=== PATIENT | male | born 1960 ===

== ENCOUNTER 2024-12-27 10:46 | Outpatient (REF) | payer MEDICAID, SELFPAY ==
--- OUTSIDE RECORDS SUMMARY | 2024-12-25 18:00 | XMS_ITS | Encounter Summary ---
Author Organization [employer] Address [address] [place] [address] Care Team Providers Care Agricultural Research Director Name Role Phone Unavailable Primary Care Provider Unavailabl e Reason for Referral * Consultation (Routine) - Closed Specialty Diagnoses / Procedures Referred By Contac t Referred To Contact Addiction Medicine Diagnoses Uncomplicated opioid dependence (CMS/HCC) Art Randolph MD [address] [place] [id number] Phone: tel: fax: Referral ID Status Reason Start Date Expiration Date V isits Requested Visits Authorized [id number] Closed Specialty Services Required 12/25/2024 12/25/2025 1 1 Reason for Visit * Reason Comments New patient visit Encounter Details Date Type Department Care Team (Latest Contact Info) Description 12/25/2024 6:00 PM EDT Office Visit [facility] [address] [place] [id number] Art Randolph MD [address] [place] [id number] Type 2 diabetes mellitus with hyperglycemia, with long-term current use of insulin ([facility]) (Primary Dx); CAD in [place] artery; History of [place] (myocardial infarction); History of stroke; PVD (peripheral vascular disease) (CMS/HCC); S/P BKA (below knee amputation) unilateral, right (CMS/HCC); S/P transmetatarsal amputation of foot, left (CMS/HCC); Uncomplicated opioid dependence (CMS/HCC) Social History Tobacco Use Types Packs/Day Years Used Date Smoking Tobacco: Never Assessed Sex and Gender Information Value Date Recorded Sex Assigned at Male 12/25/2024 2:45 PM EDT Legal Sex Male 2:33 PM EDT Gender Identity Male 12/25/2024 2:45 PM EDT Sexual Orientation Straight 12/25/2024 2: 45 PM EDT documented as of this encounter Last Filed Vital Signs Vital Sign Reading Time Taken Comments Blood Pressure 153/65 12/25/2024 5:44 PM EDT Pulse 88 12/25/2024 5:44 PM EDT Temperature 36.7 C (98 F) 12/25/2024 5:44 PM EDT Respiratory Rate 17 12/25/2024 5:44 PM EDT Oxygen Saturation 100% 12/25/2024 5:44 PM EDT Inhaled Oxygen Concentration - - Weight 66 kg (145 lb 9.6 oz) 12/25/2024 5:44 PM EDT Height 167.6 cm (5' 6 ) 12/25/2024 5:44 PM EDT Body Mass Index 23.5 12/25/2024 5:44 PM EDT documented in this encounter Progress Notes * Art Randolph MD - 12/25/2024 6:00 PM EDT Subjective Patient ID: Jim Gutierrez is a 64 y.o. male who presents for New patient visit. Patient comes accompanied by his daughter. The patient recently arrived to [place] from [place] after he was released from [facility]. He has multiple medical problems including longstanding type 2 diabetes with macrovascular complications including CAD, prior history of MIs, prior history of strokes, peripheral vascular disease, status post right BKA, status post transmetatarsal amputation of the left foot. Her daughter brought me a long list of medications he was using in [facility] including Seroquel for anxiety and depression and he was also treated with Suboxone while he was incarcerated.They need refills for all of his medications. They denied he ever had any kidney problems. His blood sugar today is in the 300s and his hemoglobin A1c is below 7. Review of Systems Constitutional: Negative for chills, fatigue and fever. HENT: Negative for sore throat. Respiratory: Negative for cough, chest tightness and shortness of breath. Cardiovascular: Negative for chest pain, palpitations and leg swelling. Gastrointestinal: Negative for abdominal pain and blood in stool. Objective Vitals: 12/25/24 1744 BP: (!) 153/65 BP Location: Left arm Patient Position: Sitting BP Cuff Size: Adult Pulse: 88 Resp: 17 Temp: 98 ??F (36.7 ??C) TempSrc: Oral SpO2: 100% Weight: 145 lb 9.6 oz (66 kg) Height: 5' 6 (1.676 m) Physical Exam Constitutional: Appearance: Normal appearance. Cardiovascular: Rate and Rhythm: Normal rate and regular rhythm. Heart sounds: No murmur heard. Pulmonary: Effort: Pulmonary effort is normal. No respiratory distress. Breath sounds: No wheezing, rhonchi or rales. Abdominal: Palpations: Abdomen is soft. Tenderness: There is no abdominal tenderness. Musculoskeletal: Comments: Status post right BKA. Status post transmetatarsal amputation of the left foot. Neurological: Mental Status: He is alert. Latest Reference Range & Units 12/25/24 18:02 12/25/24 18:03 Glucose Blood, POC 60 - 200 mg/dL 339 ! Hemoglobin A1c 4.0 - 5.7 % 6.4 ! !: Data is abnormal Assessment/Plan Diagnoses and all orders for this visit: Type 2 diabetes mellitus with hyperglycemia, with long-term current use of insulin ([facility]) Comments: I recommended evaluation with fasting blood work listed below. I sent all his medications to [facility]hour [facility] in [place] I will put him on a waiting list for a new PCP Referral to [facility] He was prescribed a new glucose meter for home use. Orders: - POCT Glucose - POCT Hgb A1c - CBC auto differential; Future - Comprehensive Metabolic Panel; Future - Lipid Panel, Standard; Future - Albumin, Random Urine W/Creatinine; Future CAD in paimiut artery - POCT Glucose - POCT Hgb A1c - CBC auto differential; Future - Comprehensive Metabolic Panel; Future - Lipid Panel, Standard; Future - Albumin, Random Urine W/Creatinine; Future History of [place] (myocardial infarction) - POCT Glucose - POCT Hgb A1c - CBC auto differential; Future - Comprehensive Metabolic Panel; Future - Lipid Panel, Standard; Future - Albumin, Random Urine W/Creatinine; Future History of stroke - POCT Glucose - POCT Hgb A1c - CBC auto differential; Future - Comprehensive Metabolic Panel; Future - Lipid Panel, Standard; Future - Albumin, Random Urine W/Creatinine; Future PVD (peripheral vascular disease) ([facility]) - POCT Glucose - POCT Hgb A1c - CBC auto differential; Future - Comprehensive Metabolic Panel; Future - Lipid Panel, Standard; Future - Albumin, Random Urine W/Creatinine; Future S/P BKA (below knee amputation) unilateral, right ([facility]) - POCT Glucose - POCT Hgb A1c - CBC auto differential; Future - Comprehensive Metabolic Panel; Future - Lipid Panel, Standard; Future - Albumin, Random Urine W/Creatinine; Future S/P transmetatarsal amputation of foot, left ([facility]) - POCT Glucose - POCT Hgb A1c - CBC auto differential; Future - Comprehensive Metabolic Panel; Future - Lipid Panel, Standard; Future - Albumin, Random Urine W/Creatinine; Future Uncomplicated opioid dependence ([facility]) - POCT Glucose - POCT Hgb A1c - CBC auto differential; Future - Comprehensive Metabolic Panel; Future - Lipid Panel, Standard; Future - Albumin, Random Urine W/Creatinine; Future - Referral to CRS OBAT; Future Other orders - amLODIPine (Norvasc) 5 MG tablet; Take 1 tablet (5 mg) by mouth Once per day. - dipyridamole-aspirin (Aggrenox) 25-200 MG 12 hr capsule; Take 1 capsule by mouth 2 times daily. - clopidogrel (Plavix) 75 MG tablet; Take 1 tablet (75 mg) by mouth Once per day. - isosorbide mononitrate ER (Imdur) 30 MG 24 hr tablet; Take 1 tablet (30 mg) by mouth Once per day. Do not crush or chew. - lisinopril (Prinivil) 20 MG tablet; Take 1 tablet (20 mg) by mouth Once per day. - metFORMIN (Glucophage) 1000 MG tablet; Take 1 tablet (1,000 mg) by mouth with breakfast and with evening meal. - metoprolol tartrate (Lopressor) 50 MG tablet; Take 1 tablet (50 mg) by mouth 2 times daily. - insulin glargine (Lantus SoloStar) 100 UNIT/ML pen; Inject 25 Units under the skin at bedtime. - insulin pen needle (BD Pen Needle Lynn Ultrafine) 32G x 4 mm misc; Use as instructed - FREESTYLE LITE test strip; Use to test blood sugar 3 times daily - Lancets misc; Use to test blood sugar 3 times daily - Alcohol Swabs 70 % pads; Use to test blood sugar 3 times daily - Blood Glucose Monitoring Suppl (FreeStyle [place] Lite) w/Device kit; Use to test blood sugar 3 times daily - atorvastatin (Lipitor) 40 MG tablet; Take 1 tablet (40 mg) by mouth Once per day. - ranolazine (Ranexa) 500 MG 12 hr tablet; Take 1 tablet (500 mg) by mouth 2 times daily. Do not crush, chew, or split. - QUEtiapine (SEROquel) 200 MG tablet; Take 1 tablet (200 mg) by mouth at bedtime. documented in this encounter Plan of Treatment Upcoming Encounters Date Type Department Care Team (Late st Contact Info) Description 01/03/2025 11:00 AM EDT Clinical Support [address] [address] Brooke Majano RN 01/10/2025 10:30 AM EDT Clinical Support [address] [address] Brooke Majano RN 02/18/2025 9:15 AM EST Office Visit [address] [address] Sara Fletcher MD [address] [place] [phone] Scheduled Orders Name Type Priority Associated Diagnoses Orde r Schedule CBC auto differential Lab Routine Type 2 diabetes mellitus with hyperglycemia, with long-term current use of insulin ([facility]) CAD in [place] artery History of [place] (myocardial infarction) History of stroke PVD (peripheral vascular disease) ([facility]) S/P BKA (below knee amputation) unilateral, right ([facility]) S/P transmetatarsal amputation of foot, left ([facility]) Uncomplicated opioid dependence ([facility]) Expected: 12/25/2024 (Approximate), Expires: 12/25/2025 Comprehensive Metabolic Panel Lab Routine Type 2 diabetes mellitus with hyperglycemia, with long-term current use of insulin ([facility]) CAD in [place] artery History of [place] (my[place] infarction) History of stroke PVD (peripheral vascular disease) ([facility]) S/P BKA (below knee amputation) unilateral, right ([facility]/HCC) S/P transmetatarsal amputation of foot, left ([facility]) Uncomplicated opioid dependence ([facility]) Expected: 12/25/2024 (Approximate), Expires: 12/25/2025 Lipid Panel, Standard Lab Routine Type 2 diabetes mellitus with hyperglycemia, with long-term current use of insulin ([facility]) CAD in [place] artery History of [place] (myocardial infarction) History of stroke PVD (peripheral vascular disease) ([facility]) S/P BKA (below knee amputation) unilateral, right ([facility]) S/P transmetatarsal amputation of foot, left ([facility]) Uncomplicated opioid dependence ([facility]) Expected: 12/25/2024 (Approximate), Expires: 12/25/2025 Albumin, Random Urine W/Creatinine Lab Routine Type 2 diabetes mellitus with hyperglycemia, with long-term current use of insulin ([facility]) CAD in [place] artery History of [place] (myocardial infarction) History of stroke PVD (peripheral vascular disease) ([facility]) S/P BKA (below knee amputation) unilateral, right ([facility]) S/P transmetatarsal amputation of foot, left ([facility]) Uncomplicated opioid dependence ([facility]) Expected: 12/25/2024 (Approximate), Expires: 12/25/2025 Scheduled Referrals Name Type Priority Associated Diagnoses Orde r Schedule Referral to [facility] OBAT Outpatient Referral Routine Uncomplicated opioid dependence ([facility]) Expected: 12/25/2024 (Approximate), Expires: 12/25/2025 documented as of this encounter Procedures Procedure Name Priority Date/Time Associated Diagnosis Comments POCT GLYCATED HEMOGLOBIN, TOTAL Routine 12/25/2024 6:03 PM EDT Type 2 diabetes mellitus with hyperglycemia, with long-term current use of insulin ([facility]) CAD in [place] artery History of [place] (myocardial infarction) History of stroke PVD (peripheral vascular disease) ([facility]) S/P BKA (below knee amputation) unilateral, right ([facility]) S/P transmetatarsal amputation of foot, left ([facility]) Uncomplicated opioid dependence ([facility]) POCT GLUCOSE Routine 12/25/2024 6:02 PM EDT Type 2 diabetes mellitus with hyperglycemia, with long-term current use of insulin ([facility]) CAD in [place] artery History of [place] (myocardial infarction) History of stroke PVD (peripheral vascular disease) ([facility]) S/P BKA (below knee amputation) unilateral, right ([facility]) S/P transmetatarsal amputation of foot, left ([facility]) Uncomplicated opioid dependence ([facility]) documented in this encounter Results * (ABNORMAL) POCT Hgb A1c (12/25/2024 6:03 PM EDT) Hemoglobin A1C 6.4(A) 4.0 - 5.7 % QC Media Lot # [id number] Lot# Expiration Date , Blood 12/25/2024 6:03 PM EDT us Art Randolph MD POINT OF CARE TEST ENTER/EDIT OR DERABLES Final Result * (ABNORMAL) POCT Glucose (12/25/2024 6:02 PM EDT) Glucose Blood, POC 339(A) 60 - 200 mg/dL QC Media Lot # [id number] Lot# Expiration Date ,025 Blood Capillary blood specimen / Unknown 12/25/2024 6:02 PM EDT us Art Randolph MD POINT OF CARE TEST ENTER/EDIT OR DERABLES Final Result documented in this encounter Visit Diagnoses Diagnosis Type 2 diabetes mellitus with hyperglycemia, with long-term current use of insulin ([facility])- Primary CAD in [place] artery History of [place] (myocardial infarction) Old myocardial infarction History of stroke Transient ischemic attack (TIA), and cerebral infarction without residual deficits PVD (peripheral vascular disease) ([facility]) Unspecified peripheral vascular disease S/P BKA (below knee amputation) unilateral, right ([facility]) S/P transmetatarsal amputation of foot, left ([facility]) Uncomplicated opioid dependence ([facility]) documented in this encounter
--- OUTSIDE RECORDS SUMMARY | 2024-12-27 09:00 | XMS_ITS | Encounter Summary ---
Author Organization [employer] Address [address] [place] [address] Care Team Providers Care Solar Business Developer Name Role Phone Unavailable Primary Care Provider Unavailabl e Reason for Visit * Reason Comments OBAT Intake Encounter Details Date Type Department Care Team (Latest Contact Info) Description 12/27/2024 9:00 AM EDT Office Visit [facility] [address] [place] [address] Yris Montes De Oca RN [address] [place] [address] Uncomplicated opioid dependence (CMS/[facility]) Social History Tobacco Use Types Packs/Day Years Used Date Smoking Tobacco: Never Assessed Sex and Gender Information Value Date Recorded Sex Assigned at Male 12/25/2024 2:45 PM EDT Legal Sex Male 2:33 PM EDT Gender Identity Male 12/25/2024 2:45 PM EDT Sexual Orientation Straight 12/25/2024 2: 45 PM EDT documented as of this encounter Progress Notes * Yris Montes De Oca RN - 12/27/2024 9:00 AM EDT OBAT NURSE INTAKE Jim Wetzel comes in today for assistance with heroin addiction. He was [facility] from [facility] on 12/23/24. His daughter brought him to [place] but cannot provide housing for him. He was onSubutex in [facility], 16 mg daily, released with Suboxone. Says Suboxone makes him sick. He wants to be drug free, including opioids. Drug Use History: Heroin: first use at 27. Inhaled as many bags as I could . Denies IVDU Alcohol: drank heavily per his daughter Mary when he was not in [facility]. Last drank 2 years ago. *Has there been any intentional Fentanyl use? No Overdose history: More than I can count Overdose Risk Tool In the past 6 months: recent incarceration and history of overdose Score: 2/8 Overdose risks reviewed. Safer usage: Gambling: No Smokin - 10 day Prior Substance Use Disorder Treatment History: Detox (how many times, most recent time, how many times this year? ) Never stayed in detox`- [facility] Residential program? History of [address]? Drunk Record Center Specialist: Participation in NA/AA in last 30 days? Methadone: for 5 years. Hated it. Buprenorphine/Naloxone: When in [facility] - Subutex ?? Discuss oral Hygiene: After the medicine is completely dissolved, the patient should take a large sip of water, swish it gently around the teeth and gums, swallow, and wait at least 1 hour before brushing their teeth. This will allow time for the mouth to gradually return to it???s normal state and avoid any mechanical damage that may occur due to brushing. Normal oral hygiene including twice daily brushing and regular flossing should be maintained, along with regular consumption of water throughout the day ans routine dental checkups. Naltrexone: No Mental Health History: Have you ever been diagnosed with any mental health conditions? Schizophrenia, bipolar disorder. OnSeroquel only Within the past month, do you have difficulties doing daily activities? Yes Health status: How would you describe your current health? Bad. L partial amputation of foot. R BKA, hx multiple strokes and [place]. IDDM Hepatitis C? HIV? Hepatitis B status? Hepatitis A status? Hospitalizations in last 12 months? 2-3 with cardiac disease ER visits in last 12 months? 2-3 Do you have any pending surgeries? No Pain Do you have chronic pain? Arthritis in hands bilat Social History Incarceration history: # lifetime arrests: too many to count # of arrests in the past 30 days? Released from 2 year [facility] sentence on 12/23/24 Currently on probation or parole? No Highest grade of school completed: None How do you identify your sexual orientation and gender identity? Straight cis male Marital status? Single ?? Do you have children (if yes, are they ? ) Does not know how many children he has Living situation: Living in his truck Employment status: Disabled Any service? No Income - ? ?? Vision impairments? Glasses ?? Hearing impairments? Yes. ?? Developmental Disabilities? ?? ADL Impairments? Due to amputations Can you tell me what your goals are for treatment? To get sober. Not use drugs or suboxone. OBAT program reviewed with patient including requirements to keep medical and OBAT appointments, urine toxicology screens and possible random call backs with medication counts. He / She is aware of his/her responsibility for their buprenorphine/naloxone medication. Informed to keep medication in a safe undisclosed place, out of reach of children and visitors. Informed to keep medication in a locked storage unit. OBAT consent and contract read to and reviewed with the patient. Patient voluntarily signed and dated consent. Opportunity for questions provided. OR use below for telephone intake: OBAT consent and contract, in addition to release of information, read to and reviewed with the patient. Patient gave verbal consent date: -- time: --,. Patient will sign in person as soon as possible. Discussed buprenorphine/naloxone - reviewed medication, potential side effects including elevationsin liver function tests, potential lethal interaction with benzodiazepines and ETOH, safe administration and storage. Patient verbalized understanding of information provided and wishes to proceed. Overdose education provided. Pt aware of how to access a naloxone rescue kit. documented in this encounter Plan of Treatment Upcoming Encounters Date Type Department Care Team (Late st Contact Info) Description 01/03/2025 11:00 AM EDT Clinical Support [facility] [address] [place] [phone] Brooke Majano, CHAKA 01/10/2025 10:30 AM EDT Clinical Support [address] [address] Brooke Majano, RN 02/18/2025 9:15 AM EST Office Visit [facility] [address] [place] [phone] Sara Fletcher MD [address] [place] [phone] documented as of this encounter Visit Diagnoses Diagnosis Uncomplicated opioid dependence (CMS/HCC) documented in this encounter
--- OUTSIDE RECORDS SUMMARY | 2024-12-27 10:15 | XMS_ITS | Encounter Summary ---
Author Organization [employer] Address [address] [place] [address] 7 [place] [address] Care Team Providers Care Emergency Medical Service Manager Name Role Phone Unavailable Primary Care Provider Unavailabl e Reason for Visit * Reason Comments OBAT Intake Encounter Details Date Type Department Care Team (Latest Contact Info) Description 12/27/2024 10:15 AM EDT Office Visit [address] [address] Hussein Sen MD [address] [place] [phone] Opioid use, unspecified, uncomplicated (Primary Dx) Social History Tobacco Use Types Packs/Day Years Used Date Smoking Tobacco: Never Assessed Sex and Gender Information Value Date Recorded Sex Assigned at Male 12/25/2024 2:45 PM EDT Legal Sex Male 2:33 PM EDT Gender Identity Male 12/25/2024 2:45 PM EDT Sexual Orientation Straight 12/25/2024 2: 45 PM EDT documented as of this encounter Plan of Treatment Upcoming Encounters Date Type Department Care Team (Late st Contact Info) Description 01/03/2025 11:00 AM EDT Clinical Support [address] [address] Brooke Majano, RN 01/10/2025 10:30 AM EDT Clinical Support [address] [address] Brooke Majano, RN 02/18/2025 9:15 AM EST Office Visit [address] [address] Sara Fletcher MD [address] [place] [address] [phone] Scheduled Orders Name Type Priority Associated Diagnoses Orde r Schedule Hepatitis B Surface Antibody, Qualitative Lab Routine Opioid use, unspecified, uncomplicated Expected: 12/27/2024 (Approximate), Expires: 12/27/2025 Hepatitis B surface antigen, EIA Lab Routine Opioid use, unspecified, uncomplicated Expected: 12/27/2024 (Approximate), Expires: 12/27/2025 Hepatitis B Core Antibody, Total Lab Routine Opioid use, unspecified, uncomplicated Expected: 12/27/2024 (Approximate), Expires: 12/27/2025 Hepatitis A Antibody, Total Lab Routine Opioid use, unspecified, uncomplicated Expected: 12/27/2024 (Approximate), Expires: 12/27/2025 HIV-1/2 Antigen and Antibodies, Fourth Generation, with Reflexes Lab Routine Opioid use, unspecified, uncomplicated Expected: 12/27/2024 (Approximate), Expires: 12/27/2025 RPR (Monitor) with Reflex to Titer Lab Routine Opioid use, unspecified, uncomplicated Expected: 12/27/2024, Expires: 12/27/2025 T-SPOT .TB Lab Routine Opioid use, unspecified, uncomplicated Expected: 12/27/2024 (Approximate), Expires: 12/27/2025 Hepatitis C Antibody with Reflex to HCV, RNA, Quantitative, Real-Time PCR Lab Routine Opioid use, unspecified, uncomplicated Expected: 12/27/2024 (Approximate), Expires: 12/27/2025 documented as of this encounter Procedures Procedure Name Priority Date/Time Associated Diagnosis Comments POCT BOAZ-14 URINE DRUG SCREEN Routine 12/27/2024 10:43 AM EDT Opioid use, unspecified, uncomplicated documented in this encounter Results * (ABNORMAL) POCT BOAZ-14 Urine Drug Screen (12/27/2024 10:43 AM EDT) THC Negative Negative Cocaine Screen, Urine Negative Negative Opiate Screen, Urine Negative Negative Methamphetamine Screen Urine Negative Negative Amphetamine Screen, Urine Negative Negative Benzodiazepines Screen, Urine Negative Negative Barbiturate Screen, Urine Negative Negative Methadone Screen, Urine Negative Negative Buprenophine Screen, Urine Positive(A) Negative TCA, Urine Positive(A) Negative MDMA Urine Negative Negative ng/mL Oxycodone Screen, Urine Negative Negative Phencyclidine (PCP), Urine Negative Negative Fentanyl, Urine Negative Negative Urine Urine specimen obtained by clean catch procedure / Unknown 12/27/2024 10:43 AM EDT Hussein Sen MD POINT OF CARE TEST ENTER/EDIT ORDERABLES Final Result documented in this encounter Visit Diagnoses Diagnosis Opioid use, unspecified, uncomplicated- Primary documented in this encounter
--- OUTSIDE RECORDS SUMMARY | 2024-12-27 11:25 | XMS_ITS | Encounter Summary ---
Author Organization [employer] Address [address] [facility] [address] [place] [address] Care Team Providers Care Corporate Communications Associate Name Role Phone Unavailable Primary Care Provider Unavailabl e Encounter Details Date Type Department Care Team (Latest Contact Info) Description 12/27/2024 Travel Social History Tobacco Use Types Packs/Day Years [...] Description 01/03/2025 11:00 AM EDT Clinical Support [facility] [address] [place] [address] Brooke Majano, RN 01/10/2025 10:30 AM EDT Clinical Support [facility] [address] [place] [address] Brooke Majano, RN 02/18/2025 9:15 AM EST Office Visit [facility] [address] [place] [address] Sara Fletcher MD [address] [place] [address] documented as of this encounter Visit Diagnoses Not on filedocumented in this encounter
--- OUTSIDE RECORDS SUMMARY | 2024-12-27 11:25 | XMS_ITS | Encounter Summary ---
Author Organization [employer] Address [address] [facility] [address]t [place] [address] Care Team Providers Care Family And Marriage Counsellor Name Role Phone Unavailable Primary Care Provider Unavailabl e Reason for Visit * Reason Comments Med Change Request Encounter Details Date Type Department Care Team (Late st Contact Info) Description 12/25/2024 Refill [facility] [address] [place] [phone] Name, MD Art [address] [place] [phone] Social History Tobacco Use Types Packs/Day Years [...] Description 01/03/2025 11:00 AM EDT Clinical Support [address] [address] Brooke Majano, RN 01/10/2025 10:30 AM EDT Clinical Support [address] [address] Brooke Majano, RN 02/18/2025 9:15 AM EST Office Visit [address] [address] Sara Fletcher MD [address] [place] [address] documented as of this encounter Visit Diagnoses Not on filedocumented in this encounter
--- OUTSIDE RECORDS SUMMARY | 2024-12-27 11:25 | XMS_ITS | Encounter Summary ---
Author Organization [employer] Address 75 [facility] 7t [place] [address] Care Team Providers Care [place] Guide Name Role Phone Unavailable Primary Care Provider Unavailabl e Encounter Details Date Type Department Care Team (Latest Contact Info) Description 12/25/2024 Travel Social History Tobacco Use Types Packs/Day [...] Description 01/03/2025 11:00 AM EDT Clinical Support [facility] [address] [place] [address] Brooke Majano, RN 01/10/2025 10:30 AM EDT Clinical Support [facility] [address] [place] [address] Brooke Majano, RN 02/18/2025 9:15 AM EST Office Visit [facility] [address] [place] [address] Sara Fletcher MD [address] [place] [address] documented as of this encounter Visit Diagnoses Not on filedocumented in this encounter
--- OUTSIDE RECORDS SUMMARY | 2024-12-27 11:25 | XMS_ITS | Clinical Summary ---
Author Organization [employer] Address [address] [facility] [address] [place] [address] Care Team Providers Care Telephone Order Supervisor Name Role Phone Unavailable Primary Care Provider Unavailabl e Allergies No known active allergies Medications amLODIPine (Norvasc) 5 MG tablet Take 1 tablet (5 mg) by mouth Once per day. 30 tablet 12/26/192025 Active dipyridamole-asp irin (Aggrenox) 25-200 MG 12 hr capsule Take 1 capsule by mouth 2 times daily. 60 capsule 12/26/192025 Active clopidogrel (Plavix) 75 MG tablet Take 1 tablet (75 mg) by mouth Once per day. 30 tablet 12/26/192025 Active isosorbide mononitrate ER (Imdur) 30 MG 24 hr tablet Take 1 tablet (30 mg) by mouth Once per day. Do not crush or chew. 30 tablet 12/26/192025 Active lisinopril (Prinivil) 20 MG tablet Take 1 tablet (20 mg) by mouth Once per day. 30 tablet 12/26/192025 Active metFORMIN (Glucophage) 1000 MG tablet Take 1 tablet (1,000 mg) by mouth with breakfast and with evening meal. 60 tablet 12/26/192025 Active metoprolol tartrate (Lopressor) 50 MG tablet Take 1 tablet (50 mg) by mouth 2 times daily. 60 tablet 12/26/192025 Active insulin glargine (Lantus SoloStar) 100 UNIT/ML pen Inject 25 Units under the skin at bedtime. 3 mL 12/26/192025 Active FREESTYLE LITE test strip Use to test blood sugar 3 times daily 100 each 12 12/26/19 25 2025 Active Alcohol Swabs 70 % pads Use to test blood sugar 3 times daily 100 each 12/26/19 Active Blood Glucose Monitoring Suppl (FreeStyle [place] Lite) w/Device kit Use to test blood sugar 3 times daily 1 kit 12/26/19 Active atorvastatin (Lipitor) 40 MG tablet Take 1 tablet (40 mg) by mouth Once per day. 30 tablet 12/26/19 25 2025 Active ranolazine (Ranexa) 500 MG 12 hr tablet Take 1 tablet (500 mg) by mouth 2 times daily. Do not crush, chew, or split. 60 tablet 12/26/19 25 2025 Active QUEtiapine (SEROquel) 200 MG tablet Take 1 tablet (200 mg) by mouth at bedtime. 30 tablet 12/26/19 25 2024 Active insulin pen needle (BD Pen Needle Lynn Ultrafine) 32G x 4 mm misc USE once a day 100 each 12 12/27/19 Active FreeStyle lancets USE TO TEST BLOOD SUGAR 3 TIMES DAILY 100 each 12/27/19 Active buprenorphine (Subtex) 8 MGIndications:Op ioid use, unspecified, uncomplicated Place 1 tablet (8 mg) under the tongue 2 times daily for 8 days. 15 tablet 12/28/19 25 2024 Active insulin pen needle (BD Pen Needle Lynn Ultrafine) 32G x 4 mm misc Use as instructed 100 each 12 12/26/19 25 2024 Discontinued Lancets misc Use to test blood sugar 3 times daily 100 each 12/26/19 25 2024 Discontinued buprenorphine (Subtex) 8 MGIndications:Op ioid use, unspecified, uncomplicated Place 1 tablet (8 mg) under the tongue 2 times daily for 8 days. 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 12/25/2024 History of stroke 12/25/2024 PVD (peripheral vascular disease) 12/25/2024 S/P BKA (below knee amputation) unilateral, righ t 12/25/2024 History of MO (myocardial infarction) 12/25/2024 S/P transmetatarsal amputation of foot, left Uncomplicated opioid dependence 12/25/2024 Encounters Date Type Department Care Team Description 12/27/2024 10:15 AM EDT Office Visit [facility] [address] [place] [phone] Hussein Sen MD Opioid use, unspecified, uncomplicated (Primary Dx) 12/27/2024 9:00 AM EDT Office Visit [facility] [address] [place] [address] Yris Montes De Oca RN Uncomplicated opioid dependence (CMS/HCC) 12/27/2024 Travel 12/25/2024 6:00 PM EDT Office Visit [facility] [address] [place] [address] Art Randolph MD Type 2 diabetes mellitus with hyperglycemia, with long-term current use of insulin (CMS/HCC) (Primary Dx); 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; History of MO (myocardial infarction); History of stroke; PVD (peripheral vascular disease) (CMS/HCC); S/P BKA (below knee amputation) unilateral, right (CMS/HCC); S/P transmetatarsal amputation of foot, left (CMS/HCC); Uncomplicated opioid dependence (CMS/HCC) 12/25/2024 Refill [facility] [address] [place] [address] Art Randolph MD 12/25/2024 Travel from Last 3 Months Social History Tobacco Use Types Packs/Day Years Used Date Smoking Tobacco: Never Assessed Sex and Gender Information Value Date Recorded Sex Assigned at Male 12/25/2024 2:45 PM EDT Legal Sex Male 2:33 PM EDT Gender Identity Male 12/25/2024 2:45 PM EDT Sexual Orientation Straight 12/25/2024 2: 45 PM EDT Last Filed Vital Signs Vital Sign Reading [...] Mass Index 23.5 12/25/2024 5:44 PM EDT Plan of Treatment Upcoming Encounters Date Type Department Care Team (Late st Contact Info) Description 01/03/2025 11:00 AM EDT Clinical Support [address] [address] Brooke Majano RN 01/10/2025 10:30 AM EDT Clinical Support [address] [address] Brooke Majano RN 02/18/2025 9:15 AM EST Office Visit [address] [address] Sara Fletcher MD [address] [place] [address] Health Maintenance Due Date Last Done Comments CT Colonography 1960 Colonoscopy 1960 Colorectal Cancer Screening 1960 Depression Screening 1960 FIT DNA/Cologuard 1960 FIT 1960 FOBT 1960 HIV Screening 1960 Lipid Panel 1960 SDOH Screening 1960 Sigmoidoscopy 1960 Disability Screening 1960 Diabetes: Foot Exam 02/22/1970 Eye Exam 02/22/1970 Alcohol/Substance Use Screening 1972 Tobacco Screening 1972 Hepatitis C Screening 02/22/1978 DTaP/Tdap/Td Vaccines (1 - Tdap) 02/22/1979 Diabetes: Urine Protein Screening 02/22/1979 Pneumococcal Vaccine: 50+ Ye ars (1 of 2 - PCV) 02/22/1979 Zoster Vaccines (1 of 2) 02/22/2010 RSV Patients and Pa tients Aged 60 years or older (1 - Risk 60-74 years 1-dose series) 2020 COVID-19 Vaccine (2023-2 5 season) 2024 Influenza Vaccine (#1) 2024 Diabetes: Hemoglobin A1C 06/24/2025 12/25/2024 HIB Vaccines Aged Out No longer eligi ble based on patient's age to complete this topic HPV Vaccines Aged Out No longer eligi ble based on patient's age to complete this topic Hepatitis A Vaccines Aged Out No long er eligible based on patient's age to complete this topic Hepatitis B Vaccines Aged Out No long er eligible based on patient's age to complete this topic IPV Vaccines Aged Out No longer eligi ble based on patient's age to complete this topic Meningococcal B Vaccine Aged Out No l onger eligible based on patient's age to complete this topic Meningococcal Vaccine Aged Out No yennifer monica eligible based on patient's age to complete this topic RSV under 20 months Aged Out No longe r eligible based on patient's age to complete this topic Rotavirus Vaccines Aged Out No longer eligible based on patient's age to complete this topic Procedures Procedure Name Priority Date/Time Associated Diagnosis Comments POCT BOAZ-14 URINE DRUG SCREEN Routine 12/27/2024 10:43 AM EDT Opioid use, unspecified, uncomplicated POCT GLYCATED HEMOGLOBIN, TOTAL Routine 12/25/2024 6:03 PM EDT Type 2 diabetes mellitus with hyperglycemia, with long-term current use of insulin ([facility]) 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 History of MO (myocardial infarction) History of stroke PVD (peripheral vascular disease) ([facility]) S/P BKA (below knee amputation) unilateral, right ([facility]) S/P transmetatarsal amputation of foot, left ([facility]) Uncomplicated opioid dependence ([facility]) POCT GLUCOSE Routine 12/25/2024 6:02 PM EDT Type 2 diabetes mellitus with hyperglycemia, with long-term current use of insulin ([facility]) 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 History of MO (myocardial infarction) History of stroke PVD (peripheral vascular disease) ([facility]) S/P BKA (below knee amputation) unilateral, right ([facility]) S/P transmetatarsal amputation of foot, left ([facility]/H[facility]) Uncomplicated opioid dependence ([facility]) from Last 3 Months Results * (ABNORMAL) POCT BOAZ-14 Urine Drug [...] OF CARE TEST ENTER/EDIT ORDERABLES Final Result * (ABNORMAL) POCT Hgb A1c (12/25/2024 6:03 [...] specimen / Unknown 12/25/2024 6:02 PM EDT Result [facility] us Art Randolph MD POINT OF CARE TEST ENTER/EDIT OR DERABLES Final Result from Last 3 Months Insurance [facility] C3
[2024-12-27 13:41] LABS: MANUAL DIFF FLAG NO
[2024-12-27 14:00] LABS: Hematocrit 27.6 % (42.0-52.0); Hemoglobin 9.1 g/dl (14.0-18.0); Imm Gran Abs Auto 0.02 X10*3/uL (0.00-0.03); Imm Gran Pct Auto 0.3 % (0.0-0.4); Lymphocytes Absolute Auto 2.1 X10*3/uL (1.2-4.9); Mean Corpuscular HGB Conc 33.0 g/dl (31.0-36.0); Mean Corpuscular Hemoglobin 30.7 pg (27.0-33.0); Mean Corpuscular Volume 93.2 fL (80.0-98.0); NRBC Abs Auto 0.000 X10*3/uL (0.0-0.012); NRBC Pct Auto 0.0 /100WBC (0.0-0.2); Platelet Count 310 X10*3/uL (160-400); Red Blood Count 2.96 X10*6/uL (4.60-5.80); White Blood Count 6.9 X10*3/uL (4.8-10.8)
[2024-12-27 14:10] LABS: Alanine Aminotransferase 11 U/L (0-40); Albumin Level 4.4 g/dL (3.5-5.0); Alkaline Phosphatase 46 U/L (39-117); Anion Gap 10 (12-20); Aspartate Amino Transferase 24 U/L (5-37); Blood Urea Nitrogen 33 mg/dL (9-16); Calcium 9.2 mg/dL (8.4-10.2); Carbon Dioxide 28 mmol/L (22-29); Chloride 106 mmol/L (96-108); Cholesterol 130 mg/dL (<200); Estimated Glomerular Filt Rate > 60; HDL Cholesterol 31 mg/dL (>40); Potassium 4.6 mmol/L (3.3-5.1); Sodium 139 mmol/L (135-145); Total Protein 6.8 g/dL (6.5-8.0); Triglycerides 203 mg/dL (<150)
[2024-12-27 14:25] LABS: ~Hepatitis A Antibody IgG 10.11 S/CO (0.00-0.99)
[2024-12-27 14:31] LABS: HBS Num1 0.32 mIU/mL (0-7.99); HBc Num1 0.04 S/CO (0.00-0.79); HBsAGNum1 0.44 S/CO (0.00-0.99); HIV Num 1 0.05 S/CO (0.00-0.99); Hepatitis B Surface Antigen Negative (Negative); ~HepC Num1 0.04 S/CO (0.00-0.79); ~Hepatitis B Surface Antibody NONREACTIVE (Nonreactive); ~Hepatitis C Antibody Nonreactive (Nonreactive)
[2024-12-31 13:24] LABS: TS Negative Control Passed; TS Panel A 1; TS Panel B 0; TS Positive Control Passed; TSpotTB Negative (Negative)
== END 2024-12-27 10:47 | disposition home or self-care (01) ==
LOC: HO.HHCL 10:46
PROVIDERS: PCP Internal Medicine; Referring Provider Emergency Medicine; Visit Provider Internal Medicine Geriatric Medicine
DX: F11.90 Opioid use, unspecified, uncomplicated (principal); E11.65 Type 2 diabetes mellitus with hyperglycemia; Z79.4 Long term (current) use of insulin; I25.10 Atherosclerotic heart disease of native coronary artery without angina pectoris; I25.2 Old myocardial infarction; Z86.73 Personal history of transient ischemic attack (TIA), and cerebral infarction without residual deficits; I73.9 Peripheral vascular disease, unspecified; Z89.511 Acquired absence of right leg below knee; Z89.432 Acquired absence of left foot; Z11.1 Encounter for screening for respiratory tuberculosis; Z11.4 Encounter for screening for human immunodeficiency virus [HIV]
CPT/HCPCS: 36415; 80053; 80061; 85025; 86481; 86592; 86704; 86706; 86708; 86803; 87340; 87389

== ENCOUNTER 2025-01-03 12:11 | Outpatient (REF) | payer MEDICAID, SELFPAY ==
--- OUTSIDE RECORDS SUMMARY | 2025-01-03 11:00 | XMS_ITS | Encounter Summary ---
Author Organization [employer] [facility] Address [address] [place] [address] 7 [place] [address] Care Team Providers Care Splunk Developer Name Role Phone Unavailable Primary Care Provider Unavailabl e Reason for Visit * Reason Comments OBAT Encounter Details Date Type Department Care Team (Latest Contact Info) Description 01/03/2025 11:00 AM EDT Office Visit [address] [address] Hussein Sen MD [address] [place] [address] Opioid use, unspecified, uncomplicated (Primary Dx); Tobacco use disorder; Alcohol use; Encounter for immunization Social History Tobacco Use Types Packs/Day Years [...] Care Team (Late st Contact Info) Description 01/10/2025 10:30 AM EDT Clinical Support [address] [address] Brooke Majano RN 03/11/2025 10:15 AM EST Office Visit [address] [phone] Art Randolph MD [address] [place] [address] documented as of this encounter Procedures Procedure Name Priority Date/Time Associated Diagnosis Comments POCT BOAZ-14 URINE DRUG SCREEN Routine 01/03/2025 11:08 AM EDT Opioid use, unspecified, uncomplicated documented in this encounter Results * (ABNORMAL) POCT BOAZ-14 Urine Drug Screen (01/03/2025 11:08 AM EDT) THC Negative Negative Cocaine Screen, Urine Negative Negative Opiate Screen, Urine Negative Negative Methamphetamine Screen Urine Negative Negative Amphetamine Screen, Urine Negative Negative Benzodiazepines Screen, Urine Negative Negative Barbiturate Screen, Urine Negative Negative Methadone Screen, Urine Negative Negative Buprenophine Screen, Urine Positive(A) Negative TCA, Urine Negative Negative MDMA Urine Negative Negative ng/mL Oxycodone Screen, Urine Negative Negative Phencyclidine (PCP), Urine Negative Negative Fentanyl, Urine Negative Negative Urine Urine specimen obtained by clean catch procedure / Unknown 01/03/2025 11:08 AM EDT Hussein Sen MD POINT OF CARE TEST ENTER/EDIT ORDERABLES Final Result documented in this encounter Visit Diagnoses Diagnosis Opioid use, unspecified, uncomplicated- Primary Tobacco use disorder Alcohol use Other problems related to lifestyle Encounter for immunization documented in this encounter
[2025-01-03 13:04] LABS: MANUAL DIFF FLAG NO
[2025-01-03 13:33] LABS: Hematocrit 29.3 % (42.0-52.0); Hemoglobin 9.6 g/dl (14.0-18.0); Imm Gran Abs Auto 0.04 X10*3/uL (0.00-0.03); Imm Gran Pct Auto 0.4 % (0.0-0.4); Lymphocytes Absolute Auto 2.0 X10*3/uL (1.2-4.9); Mean Corpuscular HGB Conc 32.8 g/dl (31.0-36.0); Mean Corpuscular Hemoglobin 30.4 pg (27.0-33.0); Mean Corpuscular Volume 92.7 fL (80.0-98.0); NRBC Abs Auto 0.000 X10*3/uL (0.0-0.012); NRBC Pct Auto 0.0 /100WBC (0.0-0.2); Platelet Count 371 X10*3/uL (160-400); Red Blood Count 3.16 X10*6/uL (4.60-5.80); White Blood Count 11.3 X10*3/uL (4.8-10.8)
--- OUTSIDE RECORDS SUMMARY | 2025-01-03 13:56 | XMS_ITS | Encounter Summary ---
Author Organization [employer] [facility] Address [address] [place] [address] 7 [place] [address] Care Team Providers Care Weight Reducing Technician Name Role Phone Unavailable Primary Care Provider Unavailabl e Reason for Visit * Reason Onset Date Comments Error (VOID this visit) 12/31/2024 Encounter Details Date Type Department Care Team (Late st Contact Info) Description 12/31/2024 Telephone [facility] [address] [place] [phone] Augusta Lopez RN Error (VOID this visit) Social History Tobacco Use Types Packs/Day Years [...] Description 01/10/2025 10:30 AM EDT Clinical Support [address] [address] Brooke Majano, RN 03/11/2025 10:15 AM EST Office Visit [facility] [address] [place] [address] Name, MD Art [address] [place] [address] documented as of this encounter Visit Diagnoses Not on filedocumented in this encounter
--- OUTSIDE RECORDS SUMMARY | 2025-01-03 13:56 | XMS_ITS | Encounter Summary ---
Author Organization [employer] Address [address] [facility] 7t [place] [address] Care Team Providers Care Melter Supervisor Oxygen Furnace Name Role Phone Unavailable Primary Care Provider Unavailabl e Reason for Visit * Reason Onset Date Comments Medication Question 01/02/2025 Encounter Details Date Type Department Care Team (Late st Contact Info) Description 01/02/2025 Telephone [facility] [address] [place], [place] [phone] Name, MD Art [address] [place] [address] Medication Question Social History Tobacco Use Types Packs/Day Years Used Date Smoking Tobacco: Never Assessed Sex and Gender Information Value Date Recorded Sex Assigned at Male 12/25/2024 2:45 PM EDT Legal Sex Male 2:33 PM EDT Gender Identity Male 12/25/2024 2:45 PM EDT Sexual Orientation Straight 12/25/2024 2: 45 PM EDT documented as of this encounter Miscellaneous Notes * Telephone Encounter - Art Ross - 01/02/2025 3:53 PM EDT Tc from pt daughter reporting that the medication for isosorbide mononitrate ER (Imdur) 30 MG 24 hr tablet Instruction are supposed to be (3 tablet by mouth at 9 am.) lisinopril (Prinivil) 20 MG tablet (2 tablets by mouth in the morning at 9am). ranolazine (Ranexa) 500 MG 12 hr tablet (2 pills by mouth 2 times a day) Contact pt to confirm. [phone] Not a pt yet documented in this encounter Plan of Treatment Upcoming Encounters Date Type Department Care Team (Late st Contact Info) Description 01/10/2025 10:30 AM EDT Clinical Support [address] [address] Brooke Majano RN 03/11/2025 10:15 AM EST Office Visit [address] [address] Name, MD Art [address] [place] [phone] documented as of this encounter Visit Diagnoses Not on filedocumented in this encounter
--- OUTSIDE RECORDS SUMMARY | 2025-01-03 13:56 | XMS_ITS | Encounter Summary ---
Author Organization [employer] Address [address] [facility] [address] 7[address] [place] [address] Care Team Providers Care Health And Safety Director Name Role Phone Unavailable Primary Care Provider Unavailabl e Encounter Details Date Type Department Care Team (Late st Contact Info) Description 12/31/[address] [phone] Yuki Adames, CHAKA Social History Tobacco Use Types Packs/Day Years Used Date Smoking Tobacco: Never Assessed Sex and Gender Information Value Date Recorded Sex Assigned at Male 12/25/2024 2:45 PM EDT Legal Sex Male 2:33 PM EDT Gender Identity Male 12/25/2024 2:45 PM EDT Sexual Orientation Straight 12/25/2024 2: 45 PM EDT documented as of this encounter Miscellaneous Notes * Telephone Encounter - Yuki Adames RN - 12/31/2024 3:41 PM EDT Tc to pt to let them know per Please call the patient, his recent blood work showed anemia recommend evaluation with blood work and stool test. He can come to the lab at his convenience. Further recommendation based on the results . Pt daughter answer ( okay to talk to and is on the HIPAAform) who reports pt is here and is listening as well to let them know of the plan recommend by . Daughter advised pt can either go to [facility] or our clinic to complete the blood work. Daughter advised if pt wanted to go to a different lab they will need the lab requisition printed.Daughter verbalized understanding and agrees with plan. documented in this encounter Plan of Treatment Upcoming Encounters Date Type Department Care Team (Late st Contact Info) Description 01/10/2025 10:30 AM EDT Clinical Support [address] [address] Brooke Majano RN 03/11/2025 10:15 AM EST Office Visit [address] [address] Name, MD Art [address] [place] [phone] documented as of this encounter Visit Diagnoses Not on filedocumented in this encounter
--- OUTSIDE RECORDS SUMMARY | 2025-01-03 13:56 | XMS_ITS | Encounter Summary ---
Author Organization [employer] Address 75 [facility] 7t [place] [address] Care Team Providers Care Mineral Engineer Name Role Phone Unavailable Primary Care Provider Unavailabl e Encounter Details Date Type Department Care Team (Latest Contact Info) Description 12/31/2024 Travel Social History Tobacco Use Types Packs/Day [...] Description 01/10/2025 10:30 AM EDT Clinical Support [facility] [address] [place] [address] Brooke Majano, CHAKA 03/11/2025 10:15 AM EST Office Visit [facility] [address] [place] [phone] Name, MD Art [address] [place] [phone] documented as of this encounter Visit Diagnoses Not on filedocumented in this encounter
--- OUTSIDE RECORDS SUMMARY | 2025-01-03 13:56 | XMS_ITS | Clinical Summary ---
Author Organization [employer] Address [address] [place] [address] Care Team Providers Care Transitional Living Specialist Name Role Phone Unavailable Primary Care Provider Unavailabl e Allergies No known active allergies Medications * This document contains information received from the source organization and may not represent a complete record from that organization. amLODIPine (Norvasc) 5 MG tablet Take 1 [...] 2 times daily. 60 tablet 12/26/192025 Active Alcohol Swabs 70 % pads Use to test blood sugar 3 times daily 100 each 12/26/19 Active atorvastatin (Lipitor) 40 MG tablet [...] misc USE once a day 100 each 12/27/19 25 Active FreeStyle lancets USE TO TEST BLOOD SUGAR 3 TIMES DAILY 100 each 12/27/19 Active buprenorphine (Subtex) 8 MGIndications:Op ioid use, unspecified, uncomplicated Place 1 tablet (8 mg) under the tongue 2 times daily for 8 days. 15 tablet 12/28/19 25 2024 Active FREESTYLE LITE test strip Use to test blood sugar 3 times daily 100 each 12/28/19 25 2025 Active Blood Glucose Monitoring Suppl (FreeStyle [place] Lite) w/Device kit Use to test blood sugar 3 times daily 1 kit 12/28/19 Active insulin glargine (Lantus SoloStar) 100 UNIT/ML pen Inject 25 Units under the skin at bedtime. 3 mL 12/28/19 25 2025 Active buprenorphine (Subtex) 8 MGIndications:Op ioid use, unspecified, uncomplicated Place 1.5 tablets (12 mg) under the tongue Once per day for 28 days. 42 tablet 01/04/20 25 2024 Active insulin glargine (Lantus SoloStar) 100 UNIT/ML pen Inject 25 Units under the skin at bedtime. 3 mL 12/26/19 25 2024 Discontinued(R eorder (will not trigger notification to Pharmacy)) insulin pen needle (BD Pen Needle [place] Ultrafine) 32G x 4 mm misc Use as instructed 100 each 12/26/19 25 2024 Discontinued FREESTYLE LITE test strip Use to test blood sugar 3 times daily 100 each 12/26/19 25 2024 Discontinued(R eorder (will not trigger notification to Pharmacy)) Lancets misc Use to test blood sugar 3 times daily 100 each 12/26/19 25 2024 Discontinued Blood Glucose Monitoring Suppl (FreeStyle [place] Lite) w/Device kit Use to test blood sugar 3 times daily 1 kit 12/26/19 25 2024 Discontinued(R eorder (will not trigger notification to Pharmacy)) buprenorphine (Subtex) 8 MGIndications:Op ioid use, unspecified, uncomplicated Place 1 tablet (8 mg) under the tongue 2 times daily for 8 days. 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 Date Type Department Care Team Description 01/03/2025 11:00 AM EDT Office Visit [facility] [address] [place] [phone] Hussein Sen MD Opioid use, unspecified, uncomplicated (Primary Dx); Tobacco use disorder; Alcohol use; Encounter for immunization 01/03/2025 Travel 01/02/2025 Telephone [facility] [address] [place] [address] [phone] Faith Ramon MD Medication Question 01/02/2025 Telephone [facility] [address] [place] [address] Art Randolph MD Medication Question 12/31/2024 Telephone [facility] [address] [place] [address] [phone] Yuki Adames RN 12/31/2024 Telephone [facility] [address] [place] [phone] Hussein Sen MD 12/31/2024 Telephone [facility] [address] [place] [address] [phone] Augusta Lopez RN Error (VOID this visit) 12/31/2024 Telephone [facility] [address] [place] [phone] Augusta Lopez RN 12/31/2024 Travel 12/31/2024 Orders Only [facility] [address] [place] [phone] Art Randolph MD Anemia, unspecified type (Primary Dx) 12/30/[address] [phone] Art Randolph MD NEW pt appt 12/27/2024 10:15 AM EDT Office Visit [address] [phone] Hussein Sen MD Opioid use, unspecified, uncomplicated (Primary Dx); Tobacco use disorder; Alcohol use 12/27/2024 9:00 AM EDT Office Visit [address] [phone] Yris Montes De Oca RN Uncomplicated opioid dependence ([facility]) 12/27/2024 Results Follow-Up [address] [phone] Art Randolph MD CBC auto differential, Comprehensive Metabolic Panel, Lipid Panel, Standard 12/27/[address] [phone] Sara Fletcher MD new patient appointment (Pt daughter came in requesting to be seen as a new patient with another doctor and not scheduled doctor Justine on 02/18/2025 at 9:15 apt booked by buck. PT daughter states has previously taken patient to appointment with PCP and had a disagreement about treatment. 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 artery; History of SC (myocardial infarction); History of stroke; PVD (peripheral vascular disease) ([facility]); S/P BKA (below knee amputation) unilateral, right ([facility]); S/P transmetatarsal amputation of foot, left ([facility]); Uncomplicated opioid dependence ([facility]) 12/25/2024 Refill [facility] [address] [place] [phone] Art Randolph MD 12/25/2024 Travel from Last 3 Months Immunizations Immunization Administration Dates Next Due HepB-CpG 01/03/2025 Social History Tobacco Use Types Packs/Day Years [...] Description 01/10/2025 10:30 AM EDT Clinical Support [facility] [address] [place] [phone] Brooke Majano, CHAKA 03/11/2025 10:15 AM EST Office Visit [facility] [address] [place] [phone] Name, MD Art [address] [place] [address] Health Maintenance Due Date Last Done Comments CT Colonography 1960 Colonoscopy 1960 Colorectal Cancer Screening 1960 Depression Screening 1960 FIT DNA/Cologuard 1960 FIT 1960 FOBT 1960 SDOH Screening 1960 Sigmoidoscopy 1960 Disability Screening 1960 Diabetes: Foot Exam 02/22/1970 Eye Exam 02/22/1970 Alcohol/Substance Use Screening 1972 Tobacco Screening 1972 DTaP/Tdap/Td Vaccines (1 - Tdap) 02/22/1979 Diabetes: Urine Protein Screening 02/22/1979 Pneumococcal Vaccine: 50+ Ye ars (1 of 2 - PCV) 02/22/1979 Zoster Vaccines (1 of 2) 02/22/2010 RSV Patients and Pa tients Aged 60 years or older (1 - Risk 60-74 years 1-dose series) 2020 COVID-19 Vaccine (1 - 2023-2 5 season) 2024 Influenza Vaccine (#1) 2024 Hepatitis B Vaccines (2 of 2 - CpG 2-dose series) 01/31/2025 01/03/2025 Diabetes: Hemoglobin A1C 06/24/2025 12/25/2024 Lipid Panel 12/27/2025 12/27/2024 HIV Screening Completed 12/27/2024 Hepatitis C Screening Completed 12/27/2024 HIB Vaccines Aged Out No longer eligi [...] Procedure Name Priority Date/Time Associated Diagnosis Comments CBC WITH AUTO DIFFERENTIAL Routine 01/03/2025 12:19 PM EDT Anemia, unspecified type POCT BOAZ-14 URINE DRUG SCREEN Routine 01/03/2025 11:08 AM EDT Opioid use, unspecified, uncomplicated HEPATITIS C AB W/REFL TO HCV RNA, QN, PCR Routine 12/27/2024 11:29 AM EDT Opioid use, unspecified, uncomplicated HIV 1/2 ANTIGEN/ANTIBODY, FOURTH GENERATION W/RFL Routine 12/27/2024 11:29 AM EDT Opioid use, unspecified, uncomplicated HEPATITIS B CORE AB TOTAL Routine 12/27/2024 11:29 AM EDT Opioid use, unspecified, uncomplicated HEPATITIS B SURFACE ANTIGEN, EIA Routine 12/27/2024 11:29 AM EDT Opioid use, unspecified, uncomplicated HEPATITIS B SURFACE ANTIBODY, QUALITATIVE Routine 12/27/2024 11:29 AM EDT Opioid use, unspecified, uncomplicated T-SPOT(R).TB Routine 12/27/2024 10:58 AM EDT Opioid use, unspecified, uncomplicated RPR (MONITOR) W/REFL TITER Routine 12/27/2024 10:58 AM EDT Opioid use, unspecified, uncomplicated HEPATITIS A ANTIBODY, TOTAL Routine 12/27/2024 10:58 AM EDT Opioid use, unspecified, uncomplicated LIPID PANEL, STANDARD Routine 12/27/2024 10:58 AM EDT Type 2 diabetes mellitus with hyperglycemia, with long-term current use of insulin (CMS/HCC) 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 artery History of SC (myocardial infarction) History of stroke PVD (peripheral vascular disease) (CMS/HCC) S/P BKA (below knee amputation) unilateral, right (CMS/HCC) S/P transmetatarsal amputation of foot, left (CMS/HCC) Uncomplicated opioid dependence (CMS/HCC) COMPREHENSIVE METABOLIC PANEL Routine 12/27/2024 10:58 AM EDT Type 2 diabetes mellitus with hyperglycemia, with long-term current use of insulin (CMS/HCC) 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 artery History of SC (myocardial infarction) History of stroke PVD (peripheral vascular disease) (CMS/HCC) S/P BKA (below knee amputation) unilateral, right (CMS/HCC) S/P transmetatarsal amputation of foot, left (CMS/HCC) Uncomplicated opioid dependence (CMS/HCC) CBC WITH AUTO DIFFERENTIAL Routine 12/27/2024 10:58 AM EDT Type 2 diabetes mellitus with hyperglycemia, with long-term current use of insulin (CMS/HCC) 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 artery History of SC (myocardial infarction) History of stroke PVD (peripheral vascular disease) (CMS/HCC) S/P BKA (below knee amputation) unilateral, right (CMS/HCC) S/P transmetatarsal amputation of foot, left (CMS/HCC) Uncomplicated opioid dependence (CMS/HCC) POCT BOAZ-14 URINE DRUG SCREEN Routine 12/27/2024 10:43 AM EDT Opioid use, unspecified, uncomplicated POCT GLYCATED HEMOGLOBIN, TOTAL Routine 12/25/2024 6:03 PM EDT Type 2 diabetes mellitus with hyperglycemia, with long-term current use of insulin (CMS/HCC) 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 artery History of SC (myocardial infarction) History of stroke PVD (peripheral vascular disease) (CMS/HCC) S/P BKA (below knee amputation) unilateral, right (CMS/HCC) S/P transmetatarsal amputation of foot, left (CMS/HCC) Uncomplicated opioid dependence (CMS/HCC) POCT GLUCOSE Routine 12/25/2024 6:02 PM EDT Type 2 diabetes mellitus with hyperglycemia, with long-term current use of insulin ([facility]) 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 White Blood Count 11.3(H) 4.8 - 10.8 X10*3/uL [facility] Red Blood Count 3.16(L) 4.60 - 5.80 X10*6/uL [facility] Hemoglobin 9.6(L) 14.0 - 18.0 g/dl [facility] Hematocrit 29.3(L) 42.0 - 52.0 % [facility] Mean Corpuscular Volume 92.7 80.0 - 98.0 fL [facility] Mean Corpuscular Hemoglobin 30.4 27.0 - 33.0 pg [facility] Mean Corpuscular HGB Conc 32.8 31.0 - 36.0 g/dl [facility] Red Cell Distribution Width 13.7 11.0 - 16.0 % [facility] Platelet Count 371 160 - 400 X10*3/uL [facility] Mean Platelet Volume 10.1 9.4 - 12.4 fL [facility] Neutrophils Percent Auto 71.3 45 - 73 % [facility] Imm Gran Pct Auto 0.4 0.0 - 0.4 % [facility] Lymphocytes Percent Auto 18.1(L) 20 - 40 % [facility] Monocytes Percent Auto 9.0 2 - 11 % [facility] Eosinophils Percent Auto 0.7 0 - 4 % [facility] Basophils Percent Auto 0.5 0 - 2 % [facility] NRBC Pct Auto 0.0 0.0 - 0.2 /100WBC [facility] Neutrophils Absolute Auto 8.1 2.0 - 8.3 x10*3/uL [facility] Imm Gran Abs Auto 0.04(H) 0.00 - 0.03 X10*3/uL [facility] Lymphocytes Absolute Auto 2.0 1.2 - 4.9 X10*3/uL [facility] Monocytes Absolute Auto 1.0 0.1 - 1.2 X10*3/uL [facility] Eosinophils Absolute Auto 0.1 0.0 - 0.4 X10*3/uL [facility] Basophils Absolute Auto 0.1 0.0 - 0.2 X10*3/uL [facility] NRBC Abs Auto 0.000 0.0 - 0.012 X10*3/uL [facility] Blood Venous blood specimen / Unknown 01/03/2025 12:19 PM EDT 01/03/2025 12:58 PM EDT us Art Randolph MD LAB BLOOD ORDERABLES Final Resul t [facility] [address] [place] [phone] * (ABNORMAL) POCT BOAZ-14 Urine Drug Screen (01/03/2025 11:08 AM EDT) Only the most recent of2 resultswithin the time period is included. THC Negative Negative Cocaine Screen, Urine Negative [...] procedure / Unknown 01/03/2025 11:08 AM EDT Result Charline Sen MD POINT OF CARE TEST ENTER/EDIT ORDERABLES Final Result * Hepatitis C Antibody with Reflex to HCV, RNA, Quantitative, Real-Time PCR (12/27/2024 11:29 AM EDT) Hepatitis C Antibody Nonreactive Nonreactive [facility] Comment:Antibodies to HCV no t detected; does not exclude early acuteHCV infection. Blood Venous blood specimen / Unknown 12/27/2024 11:29 AM EDT 12/27/2024 1:36 PM EDT Result Charline Sen MD LAB BLOOD ORDERABLES Final Res ult Performing Organization Address [facility] Co de Phone Number [facility] [address] [place] [phone] * Hepatitis B surface antigen, EIA (12/27/2024 11:29 AM EDT) Hepatitis B Surface Ag Negative Negative [facility] Blood Venous blood specimen / Unknown 12/27/2024 11:29 AM EDT 12/27/2024 1:36 PM EDT Result Charline Sen MD LAB BLOOD ORDERABLES Final Res ult Performing Organization Address [facility] Co de Phone Number [facility] [address] [place] [phone] * Hepatitis B Core Antibody, Total (12/27/2024 11:29 AM EDT) Hepatitis B Core Antibody Nonreactive Nonreactive [facility] Blood Venous blood specimen / Unknown 12/27/2024 11:29 AM EDT 12/27/2024 1:36 PM EDT Result Charline Sen MD LAB BLOOD ORDERABLES Final Res ult Performing Organization Address [facility] Co de Phone Number [facility] [address] [place] [phone] * HIV-1/2 Antigen and Antibodies, Fourth Generation, with Reflexes (12/27/2024 11:29 AM EDT) HIV AB/AG Nonreactive Nonreactive [facility] Comment:HIV-1 p24 Ag and/or HIV-1/HIV-2 Ab not detected.A test result that is nonreactive does not exclude thepossibility of exposure to or infection with HIV-1 and/orHIV-2. Nonreactive results in this assay for individualswith prior exposure to HIV-1 and/or HIV-2 may be due toantigen and antibody levels that are below the limit ofdetection of this assay.The [employer] HIV Ag/Ab Combo assay result andsupplemental assay results should be interpreted inconjunction with the patient's clinical presentation,history and other laboratory results. If the results areinconsistent with clinical evidence, additional testing issuggested to confirm the result. Blood Venous blood specimen / Unknown 12/27/2024 11:29 AM EDT 12/27/2024 1:36 PM EDT us Hussein Sen MD LAB BLOOD ORDERABLES Final Res ult Performing Organization Address [facility] Co de Phone Number [facility] [address] [place] [phone] * Hepatitis B Surface Antibody, Qualitative (12/27/2024 11:29 AM EDT) ~Hepatitis B Surface Antibody NONREACTIVE Nonreactive [facility] Comment:Nonreactive: < 8.00 mIU/mL Blood Venous blood specimen / Unknown 12/27/2024 11:29 AM EDT 12/27/2024 1:36 PM EDT us Hussein Sen MD LAB BLOOD ORDERABLES Final Res ult Performing Organization Address [facility]/ZIP Co de Phone Number [facility] [address] [place] [phone] * T-SPOT??.TB (12/27/2024 10:58 AM EDT) T Spot TB Negative Negative [facility] Comment:A negative test resu lt does not exclude the possibilityof exposure to or infection with Mycobacteriumtuberculosis (M. tuberculosis). Patients with recentexposure to TB infected individuals exhibiting anegative T-SPOT.TB result should be considered forretesting within 6 weeks or if other relevant clinicalsymptoms indicate. Results from T-SPOT.TB testing mustbe used in conjunction with each individual'sepidemiological history, current medical status,and results of other diagnostic evaluations.The T-SPOT.TB test is qualitative and results arereported as positive, borderline, or negative, giventhat the test controls perform as expected. In linewith the Centers for Disease Control and Prevention's2010 recommendation to report quantitative measurementsalongside the qualitative result, the laboratoryprovides spot counts for informational purposes only.The T-SPOT.TB test should not be interpreted as aquantitative test. TS PANEL A 1 [facility] TS PANEL B 0 [facility] Negative Control Passed [facility] Positive Control Passed [facility] Comment:For additional infor roseline, please refer tohttp://education.[employer]/faq/MAP525(This link is being provided for informational/educational purposes only.)REPORT COMMENT:REC'D AT [facility] TEST WAS PERFORMED AT:[id number] [place] [id number] OVALLE MD,PHD 12/27/2024 10:5 8 AM EDT 12/27/2024 1:34 PM EDT us Hussein Sen MD LAB BLOOD ORDERABLES Final Res ult [facility] [address] [place] [phone] * Hepatitis A Antibody, Total (12/27/2024 10:58 AM EDT) Hepatitis A Antibody IgG REACTIVE Nonreactive [facility] Comment:The presence of IgG anti-HAV implies past HAV infection(recent or distant) or vaccination against HAV. Blood Venous blood specimen / Unknown 12/27/2024 10:58 AM EDT 12/27/2024 1:36 PM EDT Hussein Sen MD LAB BLOOD ORDERABLES Final Res ult Performing Organization Address [facility] Co de Phone Number [facility] [address] [place] [phone] * RPR (Monitor) with Reflex to??Titer (12/27/2024 10:58 AM EDT) RPR (Monitor) w/Refl Titer NON-REACTI VE NON-REACT VALERIA [facility] Comment:THIS TEST WAS PERFOR MED AT:[facility] [place] [id number] ALEGRE MD Rapid Plasma Reagin Ab Titer TNP [facility] Blood Venous blood specimen / Unknown 12/27/2024 10:58 AM EDT 12/27/2024 1:36 PM EDT Hussein Sen MD LAB BLOOD ORDERABLES Final Res ult Performing Organization Address [facility] Co de Phone Number [facility] [address] [place] [phone] * (ABNORMAL) Lipid Panel, Standard (12/27/2024 10:58 AM EDT) Triglycerides 203(H) <150 mg/dL [facility] Comment:Slight Lipemia.[facility] able Triglyceride: less than 150 mg/dLBorderline High Triglyceride 150-199 mg/dLHigh Triglyceride: 200-499 mg/dLVery High Triglyceride: greater than or equal to 5OO mg/dL Cholesterol 130 <200 mg/dL [facility] Comment:Desirable Cholestero l: less than 200 mg/dLBorderline High Cholesterol: 200-239 mg/dLHigh Cholesterol: greater than 239 mg/dL LDL Cholesterol Calculated 59 <100 mg/dL [facility] Comment:Desirable LDL: less than 100 mg/dLNear Optimal/Above Optimal LDL: 110- 129 mg/dLBorderline High LDL: 130-159 mg/dLHigh LDL: 160-189 mg/dLVery High LDL: greater than or equal to 190 mg/dL HDL Cholesterol 31(L) >40 mg/dL [facility] Comment:Desirable HDL: great er than 40 mg/dL Note: This HDL assay may give artificially low results in patients with liver disease. Blood Venous blood specimen / Unknown 12/27/2024 10:58 AM EDT 12/27/2024 1:41 PM EDT us Art Name LAB BLOOD ORDERABLES Final Resul t [facility] [address] [place] [phone] * (ABNORMAL) Comprehensive Metabolic Panel (12/27/2024 10:58 AM EDT) Sodium 139 135 - 145 mmol/L [facility] Potassium 4.6 3.3 - 5.1 mmol/L [facility] Chloride 106 96 - 108 mmol/L [facility] Carbon Dioxide 28 22 - 29 mmol/L [facility] Anion Gap 10(L) 12 - 20 [facility] Urea Nitrogen (BUN) 33(H) 9 - 16 mg/dL [facility] Creatinine, Serum 1.16 0.5 - 1.4 mg/dL [facility] Estimated Glomerular Filt Rate >60 [facility] Comment:Chronic Kidney Disea se: Estimated GFR < 60 mL/min/1.25p6Vkeqoo Kidney Disease: Estimated GFR < 15 mL/min/1.73m2 Glucose 225(H) 60 - 115 mg/dL [facility] Calcium 9.2 8.4 - 10.2 mg/dL [facility] Bilirubin, Total 0.2 0.0 - 1.0 mg/dL [facility] Aspartate Amino Transferase 24 5 - 37 U/L [facility] Alanine Aminotransferase 11 0 - 40 U/L [facility] Total Protein 6.8 6.5 - 8.0 g/dL [facility] Albumin Level 4.4 3.5 - 5.0 g/dL [facility] Alkaline Phosphatase 46 39 - 117 U/L [facility] Blood Venous blood specimen / Unknown 12/27/2024 10:58 AM EDT 12/27/2024 1:41 PM EDT us Art Randolph MD LAB BLOOD ORDERABLES Final Resul t [facility] [address] [place] [phone] * (ABNORMAL) POCT Hgb A1c (12/25/2024 6:03 PM EDT) Hemoglobin A1C 6.4(A) 4.0 - 5.7 % QC Media Lot # [id number] Lot# Expiration Date Blood 12/25/2024 6:03 PM EDT Result Charline Randolph MD POINT OF CARE TEST ENTER/EDIT OR DERABLES Final Result * (ABNORMAL) POCT Glucose (12/25/2024 6:02 PM EDT) Glucose Blood, POC 339(A) 60 - 200 mg/dL [employer] Lot # [id number] Lot# Expiration Date ,025 Blood Capillary blood specimen / Unknown 12/25/2024 6:02 PM EDT Result Charline Randolph MD POINT OF CARE TEST ENTER/EDIT OR DERABLES Final Result from Last 3 Months Insurance [facility] C3
--- OUTSIDE RECORDS SUMMARY | 2025-01-03 13:56 | XMS_ITS | Encounter Summary ---
Author Organization [employer] Address [address] [place] [address] Care Team Providers Care Fumigator And Sterilizer Name Role Phone Unavailable Primary Care Provider Unavailabl e Encounter Details Date Type Department Care Team (Late st Contact Info) Description 12/31/2024 Telephone [facility] [address] [place], [place] [phone] Augusta Lopez RN Social History Tobacco Use Types Packs/Day Years Used Date Smoking Tobacco: Never Assessed Sex and Gender Information Value Date Recorded Sex Assigned at Male 12/25/2024 2:45 PM EDT Legal Sex Male 2:33 PM EDT Gender Identity Male 12/25/2024 2:45 PM EDT Sexual Orientation Straight 12/25/2024 2: 45 PM EDT documented as of this encounter Miscellaneous Notes * Telephone Encounter - Augusta Lopez RN - 12/31/2024 1:54 PM EDT Corection made, pt already has [employer] appointment rescheduled with Dr. Randolph. Pt and daughter states that pt has a chronic umbilical hernia that has been causing pain in the recent days. Pt states that this is new and does not radiate anywhere else. Pt also states that he has a prosthetic leg that is 2 inches shorter than it needs to be. RN advises pt to come to walk-in as needed for pain and he can follow-up with primary at [facility] appointment regarding prosthetic. Pt expresses understanding and agrees to plan of care. * Telephone Encounter - Augusta Lopez RN - 12/31/2024 1:48 PM EDT T/C to pt and offered new patient appointment with Angely on 01/21/25 @ 10:30am. Pt agrees with newplan of care. documented in this encounter Plan of Treatment Upcoming Encounters Date Type Department Care Team (Late st Contact Info) Description 01/10/2025 10:30 AM EDT Clinical Support [address] [address] Brooke Majano RN 03/11/2025 10:15 AM EST Office Visit [address] [address] Name, MD Art [address] [place] [phone] documented as of this encounter Visit Diagnoses Not on filedocumented in this encounter
--- OUTSIDE RECORDS SUMMARY | 2025-01-03 13:56 | XMS_ITS | Encounter Summary ---
Author Organization [employer] Address [address] [facility] 7[address] [place] [address] Care Team Providers Care Outreach Counselor Name Role Phone Unavailable Primary Care Provider Unavailabl e Encounter Details Date Type Department Care Team (Latest Contact Info) Description 01/03/2025 Travel Social History Tobacco Use Types Packs/Day [...] Description 01/10/2025 10:30 AM EDT Clinical [address] [facility] [address] [place] [address] Brooke Majano, CHAKA 03/11/2025 10:15 AM EST Office Visit [facility] [address] [place] [phone] Name, MD Art [address] [place] [phone] documented as of this encounter Visit Diagnoses Not on filedocumented in this encounter
--- OUTSIDE RECORDS SUMMARY | 2025-01-03 13:56 | XMS_ITS | Encounter Summary ---
Author Organization [employer] Address [address] [facility] 7t [place] [address] Care Team Providers Care Department Store General Manager Name Role Phone Unavailable Primary Care Provider Unavailabl e Encounter Details Date Type Department Care Team (Latest Contact Info) Description 12/27/2024 Results Follow-Up [facility] [address] [place], [place] [phone] Art Randolph MD [address] [place] [address] CBC auto differential, Comprehensive Metabolic Panel, Lipid Panel, Standard Social History Tobacco Use Types Packs/Day Years Used Date Smoking Tobacco: Never Assessed Sex and Gender Information Value Date Recorded Sex Assigned at Male 12/25/2024 2:45 PM EDT Legal Sex Male 2:33 PM EDT Gender Identity Male 12/25/2024 2:45 PM EDT Sexual Orientation Straight 12/25/2024 2: 45 PM EDT documented as of this encounter Miscellaneous Notes * Telephone Encounter - Eladia Garduno RN - 12/30/2024 2:19 PM EDT Noted ----- Message from Art Randolph MD sent at 12/27/2024 4:29 PM EDT ----- These are baseline labs for this new patient. I do not recommend any med changes. He will need to follow up with a new PCP and CRS ----- Message ----- From: Eladia Garduno RN Sent: 12/27/2024 4:27 PM EDT To: Art Randolph MD Please advise. TY ----- Message ----- From: Interface, Lab Results In Sent: 12/27/2024 2:01 PM EDT To: Sara Fletcher MD documented in this encounter Plan of Treatment Upcoming Encounters Date Type Department Care Team (Late st Contact Info) Description 01/10/2025 10:30 AM EDT Clinical Support [address] [address] Brooke Majano RN 03/11/2025 10:15 AM EST Office Visit [address] [address] Name, MD Art [address] [place] [phone] documented as of this encounter Visit Diagnoses Not on filedocumented in this encounter
--- OUTSIDE RECORDS SUMMARY | 2025-01-03 13:56 | XMS_ITS | Encounter Summary ---
Author Organization [employer] Address [address] [facility] 7t [place] [address] Care Team Providers Care Oracle Iam Consultant Name Role Phone Unavailable Primary Care Provider Unavailabl e Encounter Details Date Type Department Care Team (Late st Contact Info) Description 12/31/2024 Orders Only [address] [address] Art Randolph MD [address] [place] [address] Anemia, unspecified type (Primary Dx) Social History Tobacco Use Types Packs/Day Years Used Date Smoking Tobacco: Never Assessed Sex and Gender Information Value Date Recorded Sex Assigned at Male 12/25/2024 2:45 PM EDT Legal Sex Male 2:33 PM EDT Gender Identity Male 12/25/2024 2:45 PM EDT Sexual Orientation Straight 12/25/2024 2: 45 PM EDT documented as of this encounter Progress Notes * Art Randolph MD - 12/31/2024 1:38 PM EDT Please call the patient, his recent blood work showed anemia I recommend evaluation with blood work and stool test He can come to the lab at his convenience Further recommendation based on the results documented in this encounter Plan of Treatment Upcoming Encounters Date Type Department Care Team (Late st Contact Info) Description 01/10/2025 10:30 AM EDT Clinical Support [address] [address] Brooke Majano RN 03/11/2025 10:15 AM EST Office Visit [address] [address] Art Randolph MD [address] [place] [address] [place] [address] Scheduled Orders Name Type Priority Associated Diagnoses Orde r Schedule Iron And Total Iron Binding Capacity Lab Routine Anemia, unspecified type Expected: 12/31/2024, Expires: 12/31/2025 Ferritin Lab Routine Anemia, unspecified type Expected: 12/31/2024, Expires: 12/31/2025 Vitamin B12 (Cobalamin) and Folate Panel, Serum Lab Routine Anemia, unspecified type Expected: 12/31/2024 (Approximate), Expires: 12/31/2025 Fecal Globin By Immunochemistry Lab Routine Anemia, unspecified type Expected: 12/31/2024 (Approximate), Expires: 12/31/2025 documented as of this encounter Procedures Procedure Name Priority Date/Time Associated Diagnosis Comments CBC WITH AUTO DIFFERENTIAL Routine 01/03/2025 12:19 PM EDT Anemia, unspecified type documented in this encounter Results * (ABNORMAL) CBC auto differential (01/03/2025 12:19 PM EDT) White Blood Count 11.3(H) 4.8 - 10.8 X10*3/uL [facility] Red Blood Count 3.16(L) 4.60 - 5.80 X10*6/uL [facility] Hemoglobin 9.6(L) 14.0 - 18.0 g/dl [facility] Hematocrit 29.3(L) 42.0 - 52.0 % [facility] Mean Corpuscular Volume 92.7 80.0 - 98.0 fL [facility] Mean Corpuscular Hemoglobin 30.4 27.0 - 33.0 pg [facility] Mean Corpuscular HGB Conc 32.8 31.0 - 36.0 g/dl [facility] Red Cell Distribution Width 13.7 11.0 - 16.0 % [facility] Platelet Count 371 160 - 400 X10*3/uL [facility] Mean Platelet Volume 10.1 9.4 - 12.4 fL [facility] Neutrophils Percent Auto 71.3 45 - 73 % [facility] Imm Gran Pct Auto 0.4 0.0 - 0.4 % [facility] Lymphocytes Percent Auto 18.1(L) 20 - 40 % [facility] Monocytes Percent Auto 9.0 2 - 11 % [facility] Eosinophils Percent Auto 0.7 0 - 4 % [facility] Basophils Percent Auto 0.5 0 - 2 % [facility] NRBC Pct Auto 0.0 0.0 - 0.2 /100WBC [facility] Neutrophils Absolute Auto 8.1 2.0 - 8.3 x10*3/uL [facility] Imm Gran Abs Auto 0.04(H) 0.00 - 0.03 X10*3/uL [facility] Lymphocytes Absolute Auto 2.0 1.2 - 4.9 X10*3/uL [facility] Monocytes Absolute Auto 1.0 0.1 - 1.2 X10*3/uL [facility] Eosinophils Absolute Auto 0.1 0.0 - 0.4 X10*3/uL [facility] Basophils Absolute Auto 0.1 0.0 - 0.2 X10*3/uL [facility] NRBC Abs Auto 0.000 0.0 - 0.012 X10*3/uL [facility] Blood Venous blood specimen / Unknown 01/03/2025 12:19 PM EDT 01/03/2025 12:58 PM EDT us Art Randolph MD LAB BLOOD ORDERABLES Final Resul t [facility] [address] [place] [address] [phone] documented in this encounter Visit Diagnoses Diagnosis Anemia, unspecified type- Primary documented in this encounter
--- OUTSIDE RECORDS SUMMARY | 2025-01-03 13:56 | XMS_ITS | Encounter Summary ---
Author Organization [employer] Address [address] [place] [address] [address] [place] [address] Care Team Providers Care Burr Machine Operator Name Role Phone Unavailable Primary Care Provider Unavailabl e Reason for Visit * Reason Onset Date Comments NEW pt appt 12/30/2024 Encounter Details Date Type Department Care Team (Late st Contact Info) Description 12/30/[address] [address] Art Randolph MD [address] [place] [phone] NEW pt appt Social History Tobacco Use Types Packs/Day Years Used Date Smoking Tobacco: Never Assessed Sex and Gender Information Value Date Recorded Sex Assigned at Male 12/25/2024 2:45 PM EDT Legal Sex Male 2:33 PM EDT Gender Identity Male 12/25/2024 2:45 PM EDT Sexual Orientation Straight 12/25/2024 2: 45 PM EDT documented as of this encounter Miscellaneous Notes * Telephone Encounter - Whitney Zavala MA - 12/30/2024 4:18 PM EDT T/C to pt's daughter regarding the wax ball molder appointment. Pt's daughter agree to come in on 03/11/[address] Randolph. documented in this encounter Plan of Treatment Upcoming Encounters Date Type Department Care Team (Late st Contact Info) Description 01/10/2025 10:30 AM EDT Clinical Support [address] [address] Brooke Majano RN 03/11/2025 10:15 AM EST Office Visit [address] [address] Name, MD Art [address] [place] [address] documented as of this encounter Visit Diagnoses Not on filedocumented in this encounter
--- OUTSIDE RECORDS SUMMARY | 2025-01-03 13:56 | XMS_ITS | Encounter Summary ---
Author Organization [employer] Address [address] [facility] [address] [place] [address] Care Team Providers Care Career Technical Education Instructor Name Role Phone Unavailable Primary Care Provider Unavailabl e Reason for Referral * Consultation (Routine) - Closed Specialty Diagnoses / Procedures Referred By Contac t Referred To Contact Behavioral Health Diagnoses Bipolar affective disorder, remission status unspecified (CMS/HCC) Husseni Sen MD [address] [place] [address] Phone: tel: fax: Referral ID Status Reason Start Date Expiration Date V isits Requested Visits Authorized [id number] Closed Specialty Services Required 12/31/2024 12/31/2025 1 1 Encounter Details Date Type Department Care Team (Late st Contact Info) Description 12/31/2024 Telephone [facility] [address] [place], [place] [phone] Hussein Sen MD [address] [place] [address] Social History Tobacco Use Types Packs/Day Years Used Date Smoking Tobacco: Never Assessed Sex and Gender Information Value Date Recorded Sex Assigned at Male 12/25/2024 2:45 PM EDT Legal Sex Male 2:33 PM EDT Gender Identity Male 12/25/2024 2:45 PM EDT Sexual Orientation Straight 12/25/2024 2: 45 PM EDT documented as of this encounter Miscellaneous Notes * Telephone Encounter - Hussein Sen MD - 12/31/2024 3:05 PM EDT To make referral. documented in this encounter Plan of Treatment Upcoming Encounters Date Type Department Care Team (Late st Contact Info) Description 01/10/2025 10:30 AM EDT Clinical Support [address] [address] Brooke Majano, CHAKA 03/11/2025 10:15 AM EST Office Visit [address] [address] Name, MD Art [address] [place] [phone] Scheduled Referrals Name Type Priority Associated Diagnoses Orde r Schedule Referral to Behavioral Health Outpatient Referral Routine Bipolar affective disorder, remission status unspecified (CMS/HCC) Expected: 12/31/2024 (Approximate), Expires: 06/30/2026 documented as of this encounter Visit Diagnoses Diagnosis Bipolar affective disorder, remission status unspecified (CMS/HCC)- Primary documented in this encounter
--- OUTSIDE RECORDS SUMMARY | 2025-01-03 13:56 | XMS_ITS | Encounter Summary ---
Author Organization [employer] Address [address] [place] [address] [address] [place] [address] Care Team Providers Care Evidence Technician Name Role Phone Unavailable Primary Care Provider Unavailabl e Reason for Visit * Reason Onset Date Comments Medication Question 01/02/2025 Encounter Details Date Type Department Care Team (Late st Contact Info) Description 01/02/[address] [phone] Faith Ramon MD [address] [place] [phone] Medication Question Social History Tobacco Use Types [...] Telephone Encounter - Art Ross - 01/02/2025 4:04 PM EDT Tc from pt daughter requesting Nortriptyline 25mg (1 capsule by mouth per night) Sodium chloride 1mg (three times a day, morning afternoon, nedc. Any questions contact pt at [phone] documented in this encounter Plan of Treatment Upcoming Encounters Date Type Department Care Team (Late Contact Info) Description 01/10/2025 10:30 AM EDT Clinical Support [address] [address] Brooke Majano RN 03/11/2025 10:15 AM EST Office Visit [address] [place] [address] Name, MD Art [address] [place] [address] documented as of this encounter Visit Diagnoses Not on filedocumented in this encounter
[2025-01-03 14:13] LABS: Microalbum/Creatinine Ratio Ur 178.6 ug/mg cr (<30)
[2025-01-03 14:28] LABS: Ferritin 12 ng/mL (20-250)
[2025-01-03 14:30] LABS: Iron 27 mcg/dL (45-160); Percent Iron Saturation 10 % (15-50); Total Iron Binding Capacity 271 mcg/dL (228-428); Unsaturated Iron Binding 244 ug/dL
[2025-01-03 14:42] LABS: Folate 9.8 ng/mL (> or = 4.0); Vitamin B12 287 pg/mL (200-900)
== END 2025-01-03 12:12 | disposition home or self-care (01) ==
LOC: HO.HHCL 12:11
PROVIDERS: PCP Internal Medicine Geriatric Medicine; Visit Provider Internal Medicine Geriatric Medicine
DX: I25.10 Atherosclerotic heart disease of native coronary artery without angina pectoris (principal); I25.2 Old myocardial infarction; E11.65 Type 2 diabetes mellitus with hyperglycemia; D64.9 Anemia, unspecified; F11.20 Opioid dependence, uncomplicated; Z79.4 Long term (current) use of insulin; Z86.73 Personal history of transient ischemic attack (TIA), and cerebral infarction without residual deficits; I73.9 Peripheral vascular disease, unspecified; Z89.511 Acquired absence of right leg below knee; Z89.432 Acquired absence of left foot
CPT/HCPCS: 36415; 82043; 82570; 82607; 82728; 82746; 83540; 85025